=== PATIENT | female | born 1975 | race Caucasian/White ===

== ENCOUNTER 2020-07-18 14:31 | Emergency (ER) | payer OTHER ==
[2020-07-18 14:52] VITALS: BP 135/82; PULSE 79; TEMP 98.6; BMI 30.9
== END 2020-07-18 15:50 | disposition home or self-care (01) ==
LOC: FER 14:31
DX: S63.501A Unspecified sprain of right wrist, initial encounter (principal); S60.222A Contusion of left hand, initial encounter
CPT/HCPCS: 73110-TC-LT-FY; 73110-TC-RT-FY; 99284-25